=== PATIENT | male | born 1965 | race Caucasian/White ===

== ENCOUNTER 2018-06-14 20:17 | Emergency (ER) | payer SELFPAY ==
[~2018-06-14] VITALS: Ht 193 cm; Wt 179.2 kg
[2018-06-14] MEDS ORDERED: Percocet 5-3251 EACH PO (21:34)
[2018-06-14] MEDS ORDERED: Augmentin 875-1 EACH PO (21:34)
== END 2018-06-14 22:01 | disposition home or self-care (01) ==
LOC: ER 20:17
DX: S02.5XXA Fracture of tooth (traumatic), initial encounter for closed fracture (principal); Z88.6 Allergy status to analgesic agent; Z88.1 Allergy status to other antibiotic agents; Z88.5 Allergy status to narcotic agent; W22.8XXA Striking against or struck by other objects, initial encounter
CPT/HCPCS: 99283; A9270-GY